=== PATIENT | male | born 1955 | race Caucasian/White ===

== ENCOUNTER 2024-10-26 12:28 | Observation (INO) | payer MEDICARE ==
[~2024-10-26] VITALS: Ht 170.1 cm; Wt 66.4 kg
[2024-10-26 12:35] VITALS: BP 138/90
[2024-10-26 12:50] LABS: BASO % 0.7 % (0.0-1.0); EOS # 0.1 10*3/uL (0.0-0.4); EOS % 1.8 % (1.0-4.0); MEAN CELL VOLUME 88.9 fl (80.0-94.0); MEAN CORPUSCULAR HGB 28.5 pg (27.0-31.0); MONO # 0.6 10*3/uL (0.1-1.0); MONO % 10.1 % (3.0-9.0); NEUT % 71.4 % (47.0-73.0); PLATELET COUNT AUTOMATED 260 10*3/uL (130-400); RED BLOOD COUNT 5.06 10*6/uL (4.50-5.90); RED CELL DISTRI WIDTH 14.6 % (0-14.5); WHITE BLOOD COUNT 5.6 10*3/uL (4.8-10.8)
[2024-10-26 13:01] LABS: ACT PARTIAL THROMBO TIME 26.8 SECONDS (20.0-32.1)
[2024-10-26 13:12] LABS: ALKALINE PHOSPHATASE 99 U/L (46-116); BUN 6 mg/dl (9-23); CHLORIDE 106 mmol/L (98-107); POTASSIUM 3.8 mmol/L (3.4-5.1); SGPT/ALT 35 U/L (5-49); TOTAL PROTEIN 6.6 gm/dL (6.0-8.0)
[2024-10-26] MEDS ORDERED: Albuterol Sulf/Ipratropium 3 ML VIAL NEB ONE (13:15)
[2024-10-26] MEDS ORDERED: methylPREDNISolone sod succ 125 MG VIAL IV ONE (13:15)
[2024-10-26] MEDS ORDERED: Ceftriaxone Sodium 1 GM/10 ML SYR IV ONE (14:35)
[2024-10-26] MEDS ORDERED: AZITHROMYCIN 250 ML IV ONE (14:35)
[2024-10-26] MEDS ORDERED: Magnesium Hydroxide 30 ML UDC PO PRN (15:10)
[2024-10-26] MEDS ORDERED: Acetaminophen/Hydrocodone 5 MG/325 MG TABLET PO PRN (15:10)
[2024-10-26] MEDS ORDERED: Albuterol Sulf/Ipratropium 3 ML VIAL NEB SCH (15:10)
[2024-10-26] MEDS ORDERED: ACETAMINOPHEN 650 MG SUPP R PRN (15:10)
[2024-10-26] MEDS ORDERED: BISACODYL 5 MG TAB PO PRN (15:10)
[2024-10-26] MEDS ORDERED: TEMAZEPAM 15 MG CAP PO PRN (15:10)
[2024-10-26] MEDS ORDERED: Ondansetron Hydrochloride 4 MG/2 ML VIAL IV PRN (15:10)
[2024-10-26] MEDS ORDERED: ACETAMINOPHEN 325 MG TAB PO PRN (15:10)
[2024-10-26] MEDS ORDERED: BISACODYL 10 MG SUPP R PRN (15:10)
[2024-10-26] MEDS ORDERED: ALENDRONATE SOD70 M1 PO (15:22)
[2024-10-26] MEDS ORDERED: TRELEGY ELLIPT1 EACH INH (15:22)
[2024-10-26] MEDS ORDERED: ALLERGY RELIEF10 M2 PO (15:22)
[2024-10-26] MEDS ORDERED: VENT7GM INH (15:23)
[2024-10-26 16:34] VITALS: BP 131/75
[2024-10-26] MEDS ORDERED: GUAIFENESIN 600 MG TAB ER PO SCH (22:00)
[2024-10-26] MEDS ORDERED: methylPREDNISolone sod succ 40 MG VIAL IV SCH (22:00)
[2024-10-26 22:30] VITALS: BP 133/87
[2024-10-27] VITALS: BP 135/78
[2024-10-27 05:56] LABS: BUN 9 mg/dl (9-23); CHLORIDE 106 mmol/L (98-107); CHOLESTEROL 131 mg/dL (<200); LDL CHOLESTEROL 82 mg/dL (9-159); POTASSIUM 4.3 mmol/L (3.4-5.1); TRIGLYCERIDES 30 mg/dl (<150)
[2024-10-27 06:17] LABS: HEMATOCRIT 41.5 % (42.0-52.0); MEAN CELL VOLUME 89.2 fl (80.0-94.0); MEAN CORPUSCULAR HGB 28.6 pg (27.0-31.0); MEAN PLATELET VOLUME 9.9 fl (9.6-12.3); MONO # 0.1 10*3/uL (0.1-1.0); MONO % 1.8 % (3.0-9.0); NEUT # 2.3 10*3/uL (2.3-7.9); NEUT % 80.9 % (47.0-73.0); PLATELET COUNT AUTOMATED 255 10*3/uL (130-400); RED BLOOD COUNT 4.65 10*6/uL (4.50-5.90); RED CELL DISTRI WIDTH 14.4 % (0-14.5); WHITE BLOOD COUNT 2.8 10*3/uL (4.8-10.8)
[2024-10-27 06:51] LABS: FREE T4 1.13 ng/dl (0.89-1.76)
[2024-10-27 08:00] VITALS: BP 145/85
[2024-10-27] MEDS ORDERED: VENTOLIN 02.5 MG/3 M INH (08:45)
[2024-10-27] MEDS ORDERED: CALCIUM 1,0001 EAC3 PO (08:46)
[2024-10-27] MEDS ORDERED: Enoxaparin Sodium 40 MG/0.4 ML SYR SC SCH (10:00)
[2024-10-27] MEDS ORDERED: DOXYCYCLINE HY100 M3 PO (10:07)
[2024-10-27] MEDS ORDERED: PREDNISONE10 MG PO (10:07)
[2024-10-27] MEDS ORDERED: AZITHROMYCIN 250 ML IV SCH (14:00)
[2024-10-27] MEDS ORDERED: Ceftriaxone Sodium 1 GM in SYRINGE INFUSION 10 ML IV SCH (15:00)
[2024-10-27 18:04] LABS: VITAMIN D, 25-HYDROXY 60.8 ng/mL (30-100)
== END 2024-10-27 10:50 | disposition home or self-care (01) ==
LOC: ED 12:28 → EDHOLD 14:36 → 4E 21:56
PROVIDERS: Emergency Medicine; Student in an Organized Health Care Education/Training Program; ADMIT Internal Medicine; ATTEND Internal Medicine
DX: J98.4 Other disorders of lung (principal); J44.1 Chronic obstructive pulmonary disease with (acute) exacerbation; M81.0 Age-related osteoporosis without current pathological fracture; R79.89 Other specified abnormal findings of blood chemistry; F32.A Depression, unspecified; F12.90 Cannabis use, unspecified, uncomplicated; J45.21 Mild intermittent asthma with (acute) exacerbation; D72.810 Lymphocytopenia; D64.9 Anemia, unspecified; Z79.899 Other long term (current) drug therapy